=== PATIENT | male | born 1955 | race African-American/Black ===

== ENCOUNTER 2018-08-17 00:26 | Emergency (ER) | payer OTHER ==
[2018-08-17 00:56] LABS: #Basophils 0.1 thou/uL (0.0-0.2); #Eosinphils 0.2 thou/uL (0.0-0.7); #Lymphocytes 1.2 thou/uL (1.20-3.40); #Monocytes 0.6 thou/uL (0.11-0.59); #Neutrophils 3.4 thou/uL (1.40-6.50); %Basophils 1.6 % (0.0-1.0); %Lymphocytes 21.2 % (21.0-51.0); %Monocytes 11.5 % (0.0-10.0); %Neutrophils 61.6 % (42.0-75.0); Hemoglobin 10.4 g/dL (14.0-18.0); Mean Corpuscular HGB CONC 31.7 g/dL (32.0-36.0); Mean Corpuscular Volume 94.7 fL (78.0-98.0); Mean Platelet Volume 7.7 fL (7.4-10.4); Platelet Count 158 thou/uL (130-400); RBC Distribution Width 13.1 % (11.5-14.5); Red Blood Cell (RBC) Count 3.47 mill/uL (4.70-6.10); White Blood Cell (WBC) Count 5.5 thou/uL (4.8-10.8)
[2018-08-17 01:15] LABS: Troponin I 0.029 ng/mL (< 0.028)
[2018-08-17 02:01] LABS: ALT (SGPT) 59 U/L (8-55); AST (SGOT) 42 U/L (5-34); Albumin 3.4 g/dL (3.4-4.8); Alkaline Phosphatase 95 U/L (40-150); Anion Gap 12 mmol/L (10-20); BUN (Urea Nitrogen) 19 mg/dL (8.4-25.7); Calc. Creatinine Clearance 0 mL/min (70-130); Calcium 8.7 mg/dL (7.8-10.44); Carbon Dioxide 24 mmol/L (23-31); Chloride 104 mmol/L (98-107); Estimated GFR-MDRD 45; Globulin 2.2 g/dL (2.4-3.5); Glucose 151 mg/dL (80-115); Lipase 20 U/L (8-78); Magnesium 2.2 mg/dL (1.6-2.6); Potassium 3.7 mmol/L (3.5-5.1); Protein, Total 5.6 g/dL (5.8-8.1); Sodium 136 mmol/L (136-145)
[2018-08-17] MEDS ORDERED: Ondansetron PF 4 MG/2 ML Vial ONE (02:52)
[2018-08-17] MEDS ORDERED: Sodium Chloride 0.9% 500 ML ONE (02:52)
--- NOTE | 2018-08-17 08:26 | RAD ---
CHEST ONE VIEW: History: Chest pain. Comparison: Radiograph, 2017. FINDINGS: Heart size is enlarged. Mild pulmonary edema. Small effusions. No pneumothorax. IMPRESSION: Cardiomegaly and mild edema and small effusions, larger on the left. Left basilar infection cannot be totally excluded. POS: [facility]
--- NOTE | 2018-08-17 08:43 | CT ---
PRELIMINARY REPORT/[facility]/EMERGENTY AFTER-HOURS PROCEDURE CT Abdomen and Pelvis Without Intravenous Contrast EXAM DATE/TIME: 08/17/2018 1:39 AM CLINICAL HISTORY: 63 years old, male; Pain; Other: Chest pain; Patient HX: Chest pain since 5 pm. 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 TECHNIQUE: Axial computed tomography images of the abdomen and pelvis without intravenous contrast. All CT scans at this facility use at least one of these dose optimization techniques: automated exposure control; mA and/or kV adjustment per patient size (includes targeted exams where dose is matched to clinical indication); or iterative reconstruction. Coronal and sagittal reformatted images were created and reviewed. COMPARISON: No relevant prior studies available. FINDINGS: Lower thorax: Cardiomegaly. Cardiac device in place. Pleural/parenchymal scarring at the base of the left lung. ABDOMEN: Liver: Normal. No mass. Gallbladder and bile ducts: Normal. No calcified stones. No ductal dilation. Pancreas: Normal. No ductal dilation. Spleen: Normal. No splenomegaly. Adrenals: Normal. No mass. Kidneys and ureters: Nonobstructive nephrolithiasis left kidney. Stomach and bowel: No bowel wall thickening or intestinal obstruction. Appendix: Normal appendix. PELVIS: Bladder: Unremarkable as visualized. Reproductive: Unremarkable as visualized. ABDOMEN and PELVIS: Intraperitoneal space: Normal. No free air. No significant fluid collection. Bones/joints: No acute fracture. No dislocation. Soft tissues: Small umbilical hernia containing fat only. Vasculature: Normal. No abdominal aortic aneurysm. Lymph nodes: Normal. No enlarged lymph nodes. IMPRESSION: No acute findings. Thank you for allowing us to participate in the care of your patient. Dictated and Authenticated by: Virgilio Crews MD 08/17/2018 2:03 AM Central Time ([place] & [place]) EMERGENT AFTER HOURS CT OF ABDOMEN AND PELVIS PERFORMED WITHOUT CONTRAST ENHANCEMENT: History: Abdomen and chest pain. FINDINGS: There is parenchymal change in the left base which could indicate infiltrate. Some of this appears to be related to pleural thickening with pleural based calcifications. Changes could possibly be entire ly chronic in nature. The liver, spleen, and pancreas regions appear unremarkable. The gallbladder is somewhat contracted. Right and left adrenal glands are normal in appearance. Right and left kidneys are normal in size. Th ere are calcifications seen within the left renal pelvis, some of which are certainly vascular in darvin ure. This is questionable as whether any of these are true renal calculi. There is no obstruction see n and there is no evidence of any ureteral calculus. There is no significant periaortic or mesenteric adenopathy. CT PELVIS PERFORMED WITHOUT CONTRAST ENHANCEMENT: The appendix is unremarkable. There is no adenopathy, mass, or free fluid. No inflammatory process. F at containing periumbilical hernia is seen. Review of osseous structures show some arthritic changes of the spine and hips. IMPRESSION: 1. Pleural and parenchymal change in the left base, I am uncertain how much of this may be entirely c hronic in nature. It is difficult to exclude some infiltrative change. 2. No acute findings of the abdomen and pelvis. Incidental findings as noted above. 3. This report is in agreement with the temporary report issued by [facility]. POS: [facility]
== END 2018-08-17 03:38 | disposition short-term general hospital (02) ==
LOC: NAV ERS 00:26
DX: R07.2 Precordial pain (principal); I13.0 Hypertensive heart and chronic kidney disease with heart failure and stage 1 through stage 4 chronic kidney disease, or unspecified chronic kidney disease; N18.9 Chronic kidney disease, unspecified; I50.9 Heart failure, unspecified; R11.2 Nausea with vomiting, unspecified; B20 Human immunodeficiency virus [HIV] disease; I25.2 Old myocardial infarction; E11.9 Type 2 diabetes mellitus without complications; E03.9 Hypothyroidism, unspecified; E78.2 Mixed hyperlipidemia; Z87.891 Personal history of nicotine dependence; Z79.899 Other long term (current) drug therapy; Z79.4 Long term (current) use of insulin
CPT/HCPCS: 36415; 36416; 71045; 74176; 80053; 82274; 83690; 83735; 83880; 84484; 85025; 93005; 94760; 96374; J2405; J7050

== ENCOUNTER 2023-05-26 23:22 | Emergency (ER) | payer OTHER ==
[2023-05-27] MEDS ORDERED: Sodium Chloride 0.9% 1,000 ML ONE (00:02)
[2023-05-27] MEDS ORDERED: Ondansetron PF 4 MG/2 ML Vial ONE (00:02)
[2023-05-27 00:15] LABS: White Blood Cell (WBC) Count 3.9 10x3/uL (4.8-10.8)
[2023-05-27 00:16] LABS: #Eosinphils 0.1 thou/uL (0.0-0.7); #Lymphocytes 0.3 thou/uL (1.20-3.40); #Monocytes 0.5 thou/uL (0.11-0.59); #Neutrophils 2.9 thou/uL (1.40-6.50); %Basophils 0.6 % (0.0-1.0); %Lymphocytes 7.9 % (21.0-51.0); %Monocytes 13.6 % (0.0-10.0); %Neutrophils 75.9 % (42.0-75.0); Hematocrit 35.4 % (42.0-52.0); Hemoglobin 10.8 g/dL (14.0-18.0); Manual Diff?? NO; Mean Corpuscular HGB CONC 30.9 g/dL (32.0-36.0); Mean Corpuscular Hemoglobin 28.7 pg (27.0-31.0); Mean Corpuscular Volume 92.9 fl (78.0-98.0); Platelet Count 174 10x3/uL (130-400); RBC Distribution Width 15.5 % (11.5-14.5); Red Blood Cell (RBC) Count 3.81 mill/uL (4.70-6.10)
[2023-05-27 00:30] LABS: BUN (Urea Nitrogen) 18 mg/dL (8.4-25.7); Calc. Creatinine Clearance 0 mL/min (70-130); Carbon Dioxide 25 mmol/L (23-31); Chloride 99 mmol/L (98-107); Estimated GFR 37; Potassium 3.4 mmol/L (3.5-5.1); Sodium 131 mmol/L (136-145)
[2023-05-27 00:31] LABS: ALT (SGPT) 9 U/L (8-55); AST (SGOT) 18 U/L (5-34); Albumin 3.1 g/dL (3.4-4.8); Alkaline Phosphatase 59 U/L (40-110); Anion Gap 7 mmol/L (10-20); Bilirubin, Total 1.1 mg/dL (0.2-1.2); Calcium 8.4 mg/dL (7.6-10.4); Globulin 3.6 g/dL (2.4-3.5); Glucose 119 mg/dL (80-115); Protein, Total 6.7 g/dL (5.8-8.1)
[2023-05-27 00:32] LABS: Troponin I 0.011 ng/mL (< 0.028)
[2023-05-27] MEDS ORDERED: fentaNYL 50 mcg/mL 1 mL Vial ONE ×2 (00:48→06:15)
[2023-05-27] MEDS ORDERED: Furosemide 40 MG/4 ML VIAL ONE (01:52)
[2023-05-27 02:37] LABS: SARS-CoV-2 NAA Rapid Test Not Detected (NotDetected)
== END 2023-05-27 08:40 | disposition short-term general hospital (02) ==
LOC: NAV ERS 23:22
DX: R18.8 Other ascites (principal); E16.2 Hypoglycemia, unspecified; I11.0 Hypertensive heart disease with heart failure; I50.9 Heart failure, unspecified; J44.9 Chronic obstructive pulmonary disease, unspecified; E11.9 Type 2 diabetes mellitus without complications; E78.00 Pure hypercholesterolemia, unspecified; E03.9 Hypothyroidism, unspecified; Z87.891 Personal history of nicotine dependence; Z79.4 Long term (current) use of insulin; Z79.51 Long term (current) use of inhaled steroids; Z79.899 Other long term (current) drug therapy; Z79.82 Long term (current) use of aspirin; Z79.52 Long term (current) use of systemic steroids
CPT/HCPCS: 36415; 36416; 74176; 80053; 83605; 83880; 84484; 85025; 93005; 94760; 96361; 96374; 96375; 96376; J1940; J2405; J3010; J7050; U0002